=== PATIENT | male | born 2000 | race Caucasian/White ===

== ENCOUNTER 2021-12-20 20:38 | Emergency (ER) | payer BC ==
[2021-12-20] MEDS ORDERED: NS IV 1000 ML 1,000 ML IV STA (20:53)
[2021-12-20] MEDS ORDERED: ONDANSETRON 4 MG/2 ML (SDV) Z0FRAN IVP STA (20:53)
[2021-12-20 20:58] LABS: BASOPHILS % (AUTO) 0 % (0-10); EOSINOPHILS % (AUTO) 0 % (0-10); HEMATOCRIT 47 % (40-54); HEMOGLOBIN 16.5 g/dL (13.3-17.7); LYMPHOCYTES # (AUTO) 1.8 10^3/uL (1.0-4.0); LYMPHOCYTES % (AUTO) 17 % (12-44); MEAN CORPUSCULAR HEMOGLOBIN 31 pg (25-34); MEAN CORPUSCULAR HGB CONC 36 g/dL (32-36); MEAN CORPUSCULAR VOLUME 87 fL (80-99); MEAN PLATELET VOLUME 11.7 fL (9.0-12.2); MONOCYTES # (AUTO) 0.7 10^3/uL (0.0-1.0); MONOCYTES % (AUTO) 6 % (0-12); NEUTROPHILS # (AUTO) 7.8 10^3/uL (1.8-7.8); NEUTROPHILS % (AUTO) 76 % (42-75); PLATELET COUNT 168 10^3/uL (130-400); WHITE BLOOD COUNT 10.4 10^3/uL (4.3-11.0)
[2021-12-20 21:15] LABS: BILIRUBIN,URINE NEGATIVE (NEGATIVE); CLARITY,URINE CLEAR; COLOR,URINE YELLOW; GLUCOSE, URINE (UA) NEGATIVE (NEGATIVE); KETONES,URINE 2+ (NEGATIVE); LEUKOCYTE ESTERASE ,URINE NEGATIVE (NEGATIVE); NITRITE,URINE NEGATIVE (NEGATIVE); PH,URINE 7.5 (5-9); PROTEIN,URINE NEGATIVE (NEGATIVE)
[2021-12-20 21:16] LABS: BILIRUBIN,TOTAL 0.7 MG/DL (0.1-1.0); BUN/CREATININE RATIO 9; CALCIUM 10.1 MG/DL (8.5-10.1); CARBON DIOXIDE 20 MMOL/L (21-32); CHLORIDE 103 MMOL/L (98-107); CREATININE SERUM 0.96 MG/DL (0.60-1.30); GFR ESTIMATED 116; GLUCOSE 115 MG/DL (70-105); POTASSIUM 3.7 MMOL/L (3.6-5.0); SODIUM 137 MMOL/L (135-145)
[2021-12-20 21:17] LABS: ALANINE AMINOTRANSFERASE 15 U/L (0-55); ALBUMIN 4.9 GM/DL (3.2-4.5); ALKALINE PHOSPHATASE 50 U/L (40-136); LIPASE 16 U/L (8-78); TOTAL PROTEIN 7.8 GM/DL (6.4-8.2)
[2021-12-20 21:20] LABS: BACTERIA,URINE MODERATE /HPF
[2021-12-20 21:28] LABS: AMPHETAMINE SCREEN, URINE NEGATIVE (NEGATIVE); BARBITURATE SCREEN URINE NEGATIVE (NEGATIVE); BENZODIAZEPINES SCREEN URINE NEGATIVE (NEGATIVE); CANNABINOID SCREEN, URINE POSITIVE (NEGATIVE); COCAINE SCREEN URINE NEGATIVE (NEGATIVE); METHADONE STAT NEGATIVE (NEGATIVE); METHAMPHETAMINE SCREEN URINE S NEGATIVE (NEGATIVE); OPIATE SCREEN URINE NEGATIVE (NEGATIVE); OXYCODONE STAT NEGATIVE (NEGATIVE); PROPOXYPHENE STAT NEGATIVE (NEGATIVE); TRICYCLIC ANTIDEPRESSANTS SCRE NEGATIVE (NEGATIVE)
--- NOTE | 2021-12-20 21:45 | Diagnostic Imaging Report ---
PROCEDURE: CT head and CT cervical spine without contrast. TECHNIQUE: Multiple contiguous axial images were obtained through the brain and cervical spine without the use of intravenous contrast. Sagittal and coronal reformations through the cervical spine were then performed. Auto Exposure Controls were utilized during the CT exam to meet ALARA standards for radiation dose reduction. DATE: December 20, 2021. COMPARISON: None. INDICATION: 21-year-old male, headache. Neck pain. Tingling in the hands. FINDINGS: The ventricles and cerebral spinal fluid spaces are of normal size and configuration for the patient's age. There is no mass effect or midline shift. There is no acute intracranial hemorrhage. There is no abnormal extra-axial fluid collection. The visualized portions of the paranasal sinuses, mastoid air cells and middle ears are well aerated. There is no identified facet joint subluxation or dislocation. There is no asymmetric widening of the cervical disc spaces. The cervical disc heights are well preserved. CT is limited for assessment of disc pathology as well as additional non-bony causes of pathology in the spinal canal. There is no identified acute fracture of the cervical spine. The visualized portions of the lung apices are clear. IMPRESSION: 1. No identified acute intracranial abnormality. 2. No identified acute abnormality of the cervical spine. Dictated by: Dictated on workstation # [id number]
[2021-12-20] MEDS ORDERED: ONDA4TAB11 PO (22:10)
--- NOTE | 2021-12-20 22:10 | ED General ---
General Chief Complaint: Dizziness/Syncope Stated Complaint: DIZZINESS,NAUSEA Nursing Triage Note: Pt states he was dizzy at home while sitting at his desk. Pt states now he has tingling in both his hands Source of Information: Patient, Family History of Present Illness Date Seen by Provider: Dec 20, 2021 Time Seen by Provider: 20:42 Initial Comments 21-year-old male presenting with complaints of dizziness and nausea. He developed tingling into both hands after he had popped his neck and started having severe dizziness. He had also been worried recently because he had several family members with similar symptoms of dizziness and nausea and vomiting. He was concerned that maybe he had the same illness as the. He has had no fever, chills, diarrhea, cough, congestion, headache. At home they had tried a xzne-oib-[id number] medicine to try and help with his nausea. He was unable to take that because it was making him feel sick. He had also tried [id number] eardrops for dizziness and vertigo without improvement. Since he had continued symptoms and was continuing to worry about things with numbness in both hands that he came to the emergency department to be evaluated. He has had no head trauma or injury. He has no neck pain or headache currently. He does have a history of anxiety and stress. He had also slept all day and had no t eaten anything since 3 AM. Timing/Duration: 1-3 Hours Modifying Factors: worse with Eating Associated Systoms: No Chest Pain, No Cough, No Diaphoresis, No Fever/Chills, No Headaches, No Loss of Appetite, No Malaise; Nausea/Vomiting; No Rash, No Seizure, No Shortness of Air, No Syncope, No Weakness Allergies and Home Medications Allergies Coded Allergies: No Known Drug Allergies (Unverified , 12/20/21) Patient Home Medication List Home Medication List Reviewed: Yes Ondansetron (Ondansetron Odt) 4 Mg Tab.rapdis, 4 MG PO Q6H PRN for NAUSEA/VOMITING Prescribed by: CHRISTAL ESPARZA on 12/20/212209 Review of Systems Review of Systems Constitutional: see HPI EENTM: No ear discharge, No hearing loss, No ear pain, No blurred vision, No vision loss, No epistaxis, No nose congestion, No throat pain Respiratory: No cough, No short of breath, No stridor, No wheezing Cardiovascular: No chest pain, No edema Gastrointestinal: No diarrhea; nausea, vomiting Genitourinary: No dysuria Musculoskeletal: No neck pain Skin: No change in color, No rash Psychiatric/Neurological: Anxiety Past Ifedhvs-Gpmumi-Remnqn Hx Patient Social History Tobacco Use?: No Use of E-Cig and/or Vaping dev: No Substance use?: No Alcohol Use?: No Pt feels they are or have been: No Past Medical History Surgery/Hospitalization HX: Anxiety Physical Exam Vital Signs Vital Signs - First Documented 12/20/21 20:43 Temp 37.1 Pulse 74 Resp 16 B/P (MAP) 157/92 (113) Pulse Ox 99 O2 Delivery Room Air Capillary Refill : Less Than 3 Seconds Height, Weight, BMI Height: '" Weight: lbs. oz. kg; BMI Method: General Appearance: Anxious, Thin HEENT: PERRL/EOMI, Pharyngeal Erythema; No Photophobia, No Tonsillar Exudate, No Tonsillar Enlargement; Other (Increased cerumen bilaterally. Only able to visualize part of the TM bilaterally no drainage of fluid or hemotympanum appreciated) Neck: Full Range of Motion, Normal Inspection, Non Tender, Supple Respiratory: Chest Non Tender, Lungs Clear, Normal Breath Sounds, No Accessory Muscle Use, No Respiratory Distress Cardiovascular: Regular Rate, Rhythm, Normal Peripheral Pulses Gastrointestinal: Normal Bowel Sounds, No Pulsatile Mass, Non Tender, Soft Rectal: Deferred Back: No CVA Tenderness, No Vertebral Tenderness Extremity: Normal Capillary Refill, Normal Inspection, No Pedal Edema Neurologic/Psychiatric: Alert, Oriented x3, 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 II-XII Norm as Tested Skin: Normal Color, Warm/Dry Progress/Results/Core Measures Suspected Sepsis SIRS Temperature: Pulse: 74 Respiratory Rate: 16 Laboratory Tests 12/20/21 20:53: White Blood Count 10.4 Blood Pressure 157 /92 Mean: 113 Laboratory Tests 12/20/21 20:53: Creatinine 0.96, Platelet Count 168, Total Bilirubin 0.7 Results/Orders Lab Results Laboratory Tests Test 12/20/21 20:53 12/20/21 21:12 Range/Units White Blood Count 10.4 4.3-11.0 10^3/uL Red Blood Count 5.37 4.30-5.52 10^6/uL Hemoglobin 16.5 13.3-17.7 g/dL Hematocrit 47 40-54 % Mean Corpuscular Volume 87 80-99 fL Mean Corpuscular Hemoglobin 31 25-34 pg Mean Corpuscular Hemoglobin Concent 36 32-36 g/dL Red Cell Distribution Width 12.1 10.0-14.5 % Platelet Count 168 130-400 10^3/uL Mean Platelet Volume 11.7 9.0-12.2 fL Immature Granulocyte % (Auto) 0 % Neutrophils (%) (Auto) 76 H 42-75 % Lymphocytes (%) (Auto) 17 12-44 % Monocytes (%) (Auto) 6 0-12 % Eosinophils (%) (Auto) 0 0-10 % Basophils (%) (Auto) 0 0-10 % Neutrophils # (Auto) 7.8 1.8-7.8 10^3/uL Lymphocytes # (Auto) 1.8 1.0-4.0 10^3/uL Monocytes # (Auto) 0.7 0.0-1.0 10^3/uL Eosinophils # (Auto) 0.0 0.0-0.3 10^3/uL Basophils # (Auto) 0.0 0.0-0.1 10^3/uL Immature Granulocyte # (Auto) 0.0 0.0-0.1 10^3/uL Sodium Level 137 135-145 MMOL/L Potassium Level 3.7 3.6-5.0 MMOL/L Chloride Level 103 98-107 MMOL/L Carbon Dioxide Level 20 L 21-32 MMOL/L Anion Gap 14 5-14 MMOL/L Blood Urea Nitrogen 9 7-18 MG/DL Creatinine 0.96 0.60-1.30 MG/DL Estimat Glomerular Filtration Rate 116 BUN/Creatinine Ratio 9 Glucose Level 115 H 70-105 MG/DL Calcium Level 10.1 8.5-10.1 MG/DL Corrected Calcium 8.5-10.1 MG/DL Total Bilirubin 0.7 0.1-1.0 MG/DL Aspartate Amino Transf (AST/SGOT) 14 5-34 U/L Alanine Aminotransferase (ALT/SGPT) 15 0-55 U/L Alkaline Phosphatase 50 40-136 U/L Total Protein 7.8 6.4-8.2 GM/DL Albumin 4.9 H 3.2-4.5 GM/DL Lipase 16 8-78 U/L Serum Alcohol < 10 <10 MG/DL Urine Color YELLOW Urine Clarity CLEAR Urine pH 7.5 5-9 Urine Specific [place] 1.020 1.016-1.022 Urine Protein NEGATIVE NEGATIVE Urine Glucose (UA) NEGATIVE NEGATIVE Urine Ketones 2+ H NEGATIVE Urine Nitrite NEGATIVE NEGATIVE Urine Bilirubin NEGATIVE NEGATIVE Urine Urobilinogen 0.2 < = 1.0 MG/DL Urine Leukocyte Esterase NEGATIVE NEGATIVE Urine RBC (Auto) NEGATIVE NEGATIVE Urine RBC 5-10 H /HPF Urine WBC 2-5 /HPF Urine Squamous Epithelial Cells NONE /HPF Urine Crystals NONE /LPF Urine Bacteria MODERATE H /HPF Urine Casts NONE /LPF Urine Mucus LARGE H /LPF Urine Culture Indicated YES Urine Opiates Screen NEGATIVE NEGATIVE Urine Oxycodone Screen NEGATIVE NEGATIVE Urine Methadone Screen NEGATIVE NEGATIVE Urine Propoxyphene Screen NEGATIVE NEGATIVE Urine Barbiturates Screen NEGATIVE NEGATIVE Ur Tricyclic Antidepressants Screen NEGATIVE NEGATIVE Urine Phencyclidine Screen NEGATIVE NEGATIVE Urine Amphetamines Screen NEGATIVE NEGATIVE Urine Methamphetamines Screen NEGATIVE NEGATIVE Urine Benzodiazepines Screen NEGATIVE NEGATIVE Urine Cocaine Screen NEGATIVE NEGATIVE Urine Cannabinoids Screen POSITIVE H NEGATIVE My Orders Orders - CHRISTAL ESPARZA MD Comprehensive Metabolic Panel (12/20/21 20:53) Lipase (12/20/21 20:53) Ua Culture If Indicated (12/20/21 20:53) Ed Iv/Invasive Line Start (12/20/21 20:53) Cbc With Automated Diff (12/20/21 20:53) Ns Iv 1000 Ml (Sodium Chloride 0.9%) (12/20/21 20:53) Ondansetron Injection (Zofran Injectio (12/20/21 20:53) Ct Head/Cervical Spine Wo (12/20/21 20:53) Drug Screen Stat (Urine) (12/20/21 20:53) Alcohol (12/20/21 20:53) Urine Culture (12/20/21 21:12) Rx-Ondansetron Po (Rx-Zofran Po) (12/20/21 22:15) Vital Signs/I&O 12/20/21 12/20/21 20:43 22:17 Temp 37.1 Pulse 74 63 Resp 16 16 B/P (MAP) 157/92 (113) 141/79 Pulse Ox 99 100 O2 Delivery Room Air Room Air Capillary Refill : Less Than 3 Seconds Blood Pressure Mean: 113 Progress Note #1: Progress Note Obtain basic labs and urinalysis. Also urine drug screen and alcohol to look for other reasons that he might be dizzy and lightheaded as well as having numbness and tingling in his hands. Ordered a CT scan of his head and cervical spine since some of his symptoms were worsened after popping his neck. Will treat with normal saline 1 L IV fluid bolus for hydration, Zofran 4 mg IV for nausea. Differential diagnosis includes dehydration, gastroenteritis, vertigo, sinusitis, anxiety, electrolyte imbalance, UTI Progress Note #2: Progress Note Labs appear stable without acute significant abnormality. He does have elevated specific gravity of 1.020. He has some moderate bacteria in his urine. His urine also shows 2+ ketones. His CT scan came back showing no acute significant normality. Rechecked on the patient he reports feeling better and was tolerating oral intake. Reassured patient and advised that some of this may be anxiety. He may also have stomach virus causing some symptoms. Encouraged to use the dissolving Zofran tablets to help keep his stomach settled. Continue with liquid diet for 24 hours. If he tolerates this then he can advance to bland diet. Pulmonary advance back to regular diet as tolerated. Check back with his regular provider for continued concerns. His urine drug screen was positive for marijuana and he had no alcohol in his system. Diagnostic Imaging Diagonstic Imaging: CT Plain Films/CT/US/NM/MRI: c-spine, head Comments [facility], [place] NAME: [facility] REC#: [id number] PT STATUS: REG ER : 2000 PHYSICIAN: CHRISTAL ESPARZA MD ADMIT DATE: 12/20/21/ER FS Draft Date of Exam:12/20/21 CT HEAD/CERVICAL SPINE WO PROCEDURE: CT head and CT cervical spine without contrast. TECHNIQUE: Multiple contiguous axial images were obtained through the brain and cervical spine without the use of intravenous contrast. Sagittal and coronal reformations through the cervical spine were then performed. Auto Exposure Controls were utilized during the CT exam to meet ALARA standards for radiation dose reduction. DATE: December 20, 2021. COMPARISON: None. INDICATION: 21-year-old male, headache. Neck pain. Tingling in the hands. FINDINGS: The ventricles and cerebral spinal fluid spaces are of normal size and configuration for the patient's age. There is no mass effect or midline shift. There is no acute intracranial hemorrhage. There is no abnormal extra-axial fluid collection. The visualized portions of the paranasal sinuses, mastoid air cells and middle ears are well aerated. There is no identified facet joint subluxation or dislocation. There is no asymmetric widening of the cervical disc spaces. The cervical disc heights are well preserved. CT is limited for assessment of disc pathology as well as additional non-bony causes of pathology in the spinal canal. There is no identified acute fracture of the cervical spine. The visualized portions of the lung apices are clear. IMPRESSION: 1. No identified acute intracranial abnormality. 2. No identified acute abnormality of the cervical spine. Dictated on workstation # [id number] Dict: 12/20/212139 Trans: 12/20/212143 PJ [id number] Interpreted by: REGINA JOYCE MD Electronically signed by: Reviewed: Reviewed by Me Departure Impression Primary Impression: Dehydration Additional Impressions: Dizziness Excessive cerumen in both ear canals Anxiety about health Disposition: HOME, SELF-CARE Condition: Improved Departure-Patient Inst. Decision time for Depature: 22:07 Referrals: NO,LOCAL PHYSICIAN (PCP) Primary Care Physician LEMUEL RIVERA (Family) Primary Care Physician Patient Instructions: Dehydration, Adult ED, Dizziness, Adult ED, Ear Wax Impaction ED, Anxiety, Adult ED Add. Discharge Instructions: Stay well-hydrated and drink plenty of fluids. Follow a liquid diet for the next 24 hours. Drink plenty of water and electrolyte drinks. If you are tolerating the fluids over the next 24 hours she could advance to more bland diet. This could include things like a BRAT diet, B for Bananas, R for Rice, A for Applesauce, T for [place]. If you are tolerating this then advance to more regular diet. Use the dissolving nausea tablets to help with keeping your stomach settled. All discharge instructions reviewed with patient and/or family. Voiced understanding. Scripts Ondansetron (Ondansetron Odt) 4 Mg Tab.rapdis 4 MG PO Q6H PRN for NAUSEA/VOMITING for 5 Days, #20 TAB 0 Refills Prov: CHRISTAL ESPARZA MD 12/20/21 CHRISTAL ESPARZA MD Dec 20, 2021 22:10
[2021-12-20] MEDS ORDERED: RX-ONDANSETRON 4 MG ODT (ZOFRAN) PPK #4 PO PRN (22:15)
[2021-12-20 22:17] VITALS: BP 141/79
== END 2021-12-20 22:17 | disposition home or self-care (01) ==
LOC: ER FS 20:41
DX: E86.0 Dehydration (principal); F41.9 Anxiety disorder, unspecified; H61.23 Impacted cerumen, bilateral; R11.2 Nausea with vomiting, unspecified
CPT/HCPCS: 36415; 70450; 72125; 80053; 80306; 80320; 81000; 83690; 85025; 87088

== ENCOUNTER 2021-12-24 19:07 | Emergency (ER) | payer BC ==
[~2021-12-24] VITALS: Ht 187.9 cm; Wt 60.8 kg
[~2021-12-24 19:07] MED LIST: ONDA4TAB11 PO
[2021-12-24] MEDS ORDERED: PANTOPRAZOLE 40 MG (PROTONIX) VIAL IV STA (19:20)
[2021-12-24] MEDS ORDERED: KETOROLAC 30 MG/ML VIAL IVP STA (19:20)
[2021-12-24] MEDS ORDERED: NS IV 1000 ML 1,000 ML IV STA (19:20)
[2021-12-24] MEDS ORDERED: ONDANSETRON 4 MG/2 ML (SDV) Z0FRAN IVP STA (19:20)
[2021-12-24 19:27] LABS: BASOPHILS % (AUTO) 0 % (0-10); EOSINOPHILS % (AUTO) 0 % (0-10); HEMATOCRIT 48 % (40-54); HEMOGLOBIN 16.8 g/dL (13.3-17.7); LYMPHOCYTES # (AUTO) 1.7 10^3/uL (1.0-4.0); LYMPHOCYTES % (AUTO) 19 % (12-44); MEAN CORPUSCULAR HEMOGLOBIN 30 pg (25-34); MEAN CORPUSCULAR HGB CONC 35 g/dL (32-36); MEAN CORPUSCULAR VOLUME 87 fL (80-99); MEAN PLATELET VOLUME 12.1 fL (9.0-12.2); MONOCYTES # (AUTO) 0.8 10^3/uL (0.0-1.0); MONOCYTES % (AUTO) 8 % (0-12); NEUTROPHILS # (AUTO) 6.6 10^3/uL (1.8-7.8); NEUTROPHILS % (AUTO) 72 % (42-75); PLATELET COUNT 173 10^3/uL (130-400); WHITE BLOOD COUNT 9.2 10^3/uL (4.3-11.0)
--- NOTE | 2021-12-24 19:29 | ED GI ---
General Chief Complaint: Abdominal/GI Problems Stated Complaint: R UPPER ABD PAIN Source of Information: Patient, Family History of Present Illness Date Seen by Provider: Dec 24, 2021 Time Seen by Provider: 19:11 Initial Comments 21-year-old male presenting with complaints of epigastric and right upper quadrant abdominal pain. He has had nausea, vomiting, diarrhea. He states that he has been struggling to even keep liquids down. He had been seen on Wednesday for having dizziness and headache. All of his testing at that time had looked okay. He was doing better after some fluids and Zofran here in the emergency department. He states that he has had worsening vomiting and diarrhea in the last 48 hours. He has not had a fever or chills. He appears very anxious. He complains of sharp and cramping pain that is worse if he tries to eat or drink. He had gone to the [facility] in the ordered a test of his gallbladder but it will not be performed until Wednesday, January 02. He was having pain so he came here to the emergency department to be evaluated tonight. Timing/Duration: 4-5 Days Severity/Quality: Severe, Cramping, Sharp Location: RUQ, Epigastric Radiation: No Radiation Activities at Onset: None Modifying Factors: Worsens With Eating Associated Symptoms: No Back Pain, No Chest Pain, No Diaphoresis, No Fever/Chills, No Fatigue, No Headache, No Heartburn; Nausea/Vomiting; No Rash, No Shortness of Air, No Swelling/Mass in Abdomen, No Syncope, No Weakness Allergies and Home Medications Allergies Coded Allergies: No Known Drug Allergies (Unverified , 12/20/21) Patient Home Medication List Home Medication List Reviewed: Yes Ciprofloxacin HCl (Ciprofloxacin HCl) 500 Mg Tablet, 500 MG PO BID Prescribed by: CHRISTAL ESPARZA on 12/24/212018 Dicyclomine HCl (Dicyclomine HCl) 10 Mg Capsule, 10 MG PO Q6H PRN for abdominal cramping/pain Prescribed by: CHRISTAL ESPARZA on 12/24/212036 Esomeprazole Magnesium (Nexium) 20 Mg Capsule.dr 20 MG PO DAILY Prescribed by: CHRISTAL ESPARZA on 12/24/212018 Metoclopramide HCl (Metoclopramide HCl) 10 Mg Tablet, 10 MG PO Q6H PRN for NAUSEA/VOMITING Prescribed by: CHRISTAL ESPARZA on 12/24/212018 Ondansetron (Ondansetron Odt) 4 Mg Tab.rapdis, 4 MG PO Q6H PRN for NAUSEA/VOMITING Prescribed by: CHRISTAL ESPARZA on 12/20/21 2210 Review of Systems Review of Systems Constitutional: No chills, No fever EENTM: No Symptoms Reported Respiratory: No Symptoms Reported Cardiovascular: No Symptoms Reported Gastrointestinal: See HPI Genitourinary: Denies Burning, Denies Flank Pain Musculoskeletal: no symptoms reported Skin: No rash Psychiatric/Neurological: Anxiety Past Orpbeiq-Sifbmo-Auoolc Hx Past Medical History Surgery/Hospitalization HX: Anxiety Physical Exam Vital Signs Vital Signs - First Documented 12/24/21 19:10 Temp 37.5 Pulse 73 Resp 18 B/P (MAP) 166/96 (119) Pulse Ox 100 O2 Delivery Room Air Capillary Refill : Height/Weight/BMI Height: '" Weight: lbs. oz. kg; BMI Method: General Appearance: thin, other (Anxious appearing) HEENT: PERRL/EOMI, pharynx normal Neck: non-tender, full range of motion, supple Respiratory: chest non-tender, lungs clear, normal breath sounds, no respiratory distress, no accessory muscle use Cardiovascular: normal peripheral pulses, regular rate, rhythm Gastrointestinal: normal bowel sounds, soft, no pulsatile mass; No distended; guarding; No rebound; tenderness (Epigastric and right upper quadrant) Rectal: deferred Extremities: normal range of motion, non-tender, normal capillary refill Neurologic/Psychiatric: alert, oriented x 3, other (Anxious) Skin: normal color, warm/dry Images 1 - Complains of pain primarily in the right upper quadrant and epigastric area. There is no rebound tenderness. He does have diffuse guarding Progress/Results/Core Measures Results/Orders Lab Results Laboratory Tests Test 12/24/21 19:15 Range/Units White Blood Count 9.2 4.3-11.0 10^3/uL Red Blood Count 5.55 H 4.30-5.52 10^6/uL Hemoglobin 16.8 13.3-17.7 g/dL Hematocrit 48 40-54 % Mean Corpuscular Volume 87 80-99 fL Mean Corpuscular Hemoglobin 30 25-34 pg Mean Corpuscular Hemoglobin Concent 35 32-36 g/dL Red Cell Distribution Width 12.0 10.0-14.5 % Platelet Count 173 130-400 10^3/uL Mean Platelet Volume 12.1 9.0-12.2 fL Immature Granulocyte % (Auto) 0 % Neutrophils (%) (Auto) 72 42-75 % Lymphocytes (%) (Auto) 19 12-44 % Monocytes (%) (Auto) 8 0-12 % Eosinophils (%) (Auto) 0 0-10 % Basophils (%) (Auto) 0 0-10 % Neutrophils # (Auto) 6.6 1.8-7.8 10^3/uL Lymphocytes # (Auto) 1.7 1.0-4.0 10^3/uL Monocytes # (Auto) 0.8 0.0-1.0 10^3/uL Eosinophils # (Auto) 0.0 0.0-0.3 10^3/uL Basophils # (Auto) 0.0 0.0-0.1 10^3/uL Immature Granulocyte # (Auto) 0.0 0.0-0.1 10^3/uL Sodium Level 135 135-145 MMOL/L Potassium Level 3.9 3.6-5.0 MMOL/L Chloride Level 101 98-107 MMOL/L Carbon Dioxide Level 21 21-32 MMOL/L Anion Gap 13 5-14 MMOL/L Blood Urea Nitrogen 11 7-18 MG/DL Creatinine 1.06 0.60-1.30 MG/DL Estimat Glomerular Filtration Rate 103 BUN/Creatinine Ratio 10 Glucose Level 97 70-105 MG/DL Calcium Level 10.5 H 8.5-10.1 MG/DL Corrected Calcium 8.5-10.1 MG/DL Total Bilirubin 1.2 H 0.1-1.0 MG/DL Aspartate Amino Transf (AST/SGOT) 12 5-34 U/L Alanine Aminotransferase (ALT/SGPT) 14 0-55 U/L Alkaline Phosphatase 54 40-136 U/L Total Protein 8.2 6.4-8.2 GM/DL Albumin 5.2 H 3.2-4.5 GM/DL Lipase 17 8-78 U/L My Orders Orders - CHRISTAL ESPARZA MD Comprehensive Metabolic Panel (12/24/21 19:20) Lipase (12/24/21 19:20) Ed Iv/Invasive Line Start (12/24/21 19:20) Cbc With Automated Diff (12/24/21 19:20) Ct Abdomen/Pelvis W (12/24/21 19:20) Ns Iv 1000 Ml (Sodium Chloride 0.9%) (12/24/21 19:20) Pantoprazole Injection (Protonix Injecti (12/24/21 19:20) Ondansetron Injection (Zofran Injectio (12/24/21 19:20) Ketorolac Injection (Toradol Injection) (12/24/21 19:20) Iohexol Injection (Omnipaque 350 Mg/Ml 1 (12/24/21 20:00) Received Contrast (Hold Metformin- Contr (12/24/21 20:00) Sodium Chloride Flush (Catheter Flush Sy (12/24/21 20:00) Ns (Ivpb) (Sodium Chloride 0.9% Ivpb Bag (12/24/21 20:00) Ciprofloxacin Tablet (Cipro Tablet) (12/24/21 20:20) Rx-Dicyclomine Capsule (Rx-Bentyl Capsul (12/24/21 20:35) Medications Given in ED Current Medications Medications Dose Ordered Sig/Monae Route Start Time Stop Time Status Last Admin Dose Admin Iohexol 100 ml ONCE ONCE IV 12/24/21 20:00 12/24/21 20:01 UNV 12/24/21 19:48 100 ML Sodium Chloride 10 ml NEEDED PRN IV 12/24/21 20:00 UNV 12/24/21 19:48 10 ML Sodium Chloride 100 ml ONCE ONCE IV 12/24/21 20:00 12/24/21 20:01 UNV 12/24/21 19:48 80 ML Vital Signs/I&O 12/24/21 19:10 Temp 37.5 Pulse 73 Resp 18 B/P (MAP) 166/96 (119) Pulse Ox 100 O2 Delivery Room Air Progress Progress Note #1: Progress Note Advised patient and family that his labs from a liver standpoint had looked fine on Wednesday. We will repeat blood work tonight and see if there has been any change. Can order a CT scan to evaluate for signs of acute obstruction, pericholecystic fluid, signs of obstruction of the liver. If everything looks okay and he is not having any acute changes as well as not having any changes on his blood work then could try medication for gastritis and reflux as well as a different nausea medication. Have him follow-up with clinic and surgery as he may need a EGD. Can order an outpatient ultrasound of the gallbladder. Was for his pain we will try a dose of Protonix 40 mg IV x1, Toradol 30 mg IV x1, normal saline 1 L IV for hydration, Zofran 4 mg IV for nausea and vomiting. Progress Note #2: Progress Note Labs appear similar to this weekend. He has a white blood cell count of 9.2 thousand. He has no significant elevation of his LFTs. His total bilirubin was 0.7 and now is 1.2. He has findings on the CT scan of diffuse bowel wall thickening and inflammation consistent with colitis. This could be either infectious or inflammatory. There is no sign of definite gallbladder disease or hepatic obstruction. Will try treating for colitis and have him check back with Dr. Tello for colonoscopy. Use proton pump inhibitor for possible gastritis, Reglan for nausea, Cipro for 5 days for possible infectious source of the colitis. Try Bentyl or dicyclomine for abdominal cramping and pain. Encouraged to follow-up with Dr. Tello as he may need a colonoscopy or scope. Diagnostic Imaging Diagonstic Imaging: CT Plain Films/CT/US/NM/MRI: abdomen, pelvis Comments NAME: MARINA MCCLAIN [facility] REC#: [id number] PT STATUS: REG ER : 2000 PHYSICIAN: CHRISTAL ESPARZA MD ADMIT DATE: 12/24/21/ER FS Draft Date of Exam:12/24/21 CT ABDOMEN/PELVIS W PROCEDURE: CT abdomen and pelvis with contrast. TECHNIQUE: Multiple contiguous axial images were obtained through the abdomen and pelvis after administration of intravenous contrast. Auto Exposure Controls were utilized during the CT exam to meet ALARA standards for radiation dose reduction. All CT scans use one or more of the following dose optimizing techniques: automated exposure control, MA and/or KvP adjustment based on patient size and exam type or iterative reconstruction. DATE: December 24, 2021. COMPARISON: None. INDICATION: 21-year-old male, right upper quadrant and epigastric pain. Nausea and vomiting. Diarrhea. FINDINGS: The visualized portions of the lung bases are clear. The heart is not enlarged. There is no pericardial effusion. The liver is unremarkable in size and contour. There is no identified liver lesion. The main, right, and left portal veins are patent. The gallbladder is unremarkable. There is no identified intrahepatic or extrahepatic bile duct dilation. The main pancreatic duct is not abnormally dilated. Unremarkable appearance of the pancreatic parenchyma. The spleen is not enlarged. There is an accessory splenule on axial image 74. The adrenal glands are unremarkable. Unremarkable appearance of the renal parenchyma. The urinary collecting systems are not distended. There is no identified renal or ureteral stone. There is mild diffuse urinary bladder wall thickening which may relate to cystitis, chronic outlet obstruction and/or under distention. There is long segment wall thickening of the vast majority of the colon. There is no distention of the intestinal tract. There is no free intraperitoneal air. There is no drainable fluid collection. There is no sizable volume free pelvic fluid. There is no identified abnormally enlarged lymph node in the abdomen or pelvis which meets CT size criteria for adenopathy. There is no identified acute bony abnormality. IMPRESSION: CT abdomen and pelvis: 1. Long segment wall thickening of the vast majority of the colon likely relating to a nonspecific colitis. Infectious and inflammatory etiologies are favored. Dictated on workstation # [id number] Dict: 12/24/211952 Trans: 12/24/211999 E [id number] Interpreted by: REGINA JOYCE MD Electronically signed by: Reviewed: Reviewed by Me Departure Impression Primary Impression: Right upper quadrant abdominal pain Additional Impressions: Nausea vomiting and diarrhea Colitis Disposition: 01 HOME, SELF-CARE Condition: Stable Departure-Patient Inst. Decision time for Depature: 20:36 Referrals: APOLONIA TELLO REBECCA A ARNP-C (PCP) Primary Care Physician Patient Instructions: Abdominal Pain, Adult ED, Colitis (DC), Diarrhea, Adult ED, Full Liquid Diet, Nausea and Vomiting, Adult ED Add. Discharge Instructions: Follow a full liquid diet until your symptoms have resolved. Take antibiotic to treat for possible infectious source of the inflammation of the colon. Follow up with Dr. Tello as you may need Colonoscopy to further evaluate your colon and the colitis, especially if it is not improving. All discharge instructions reviewed with patient and/or family. Voiced understanding. Scripts Dicyclomine HCl (Dicyclomine HCl) 10 Mg Capsule 10 MG PO Q6H PRN for abdominal cramping/pain for 7 Days, #28 CAP 0 Refills Prov: ENYART,CHRISTAL E MD 12/24/21 Esomeprazole Magnesium (Nexium) 20 Mg Capsule.dr 20 MG PO DAILY for gastritis for 30 Days, #30 CAP 0 Refills Prov: CHRISTAL ESPARZA MD 12/24/21 Metoclopramide HCl (Metoclopramide HCl) 10 Mg Tablet 10 MG PO Q6H PRN for NAUSEA/VOMITING for 5 Days, #20 TAB 0 Refills Prov: CHRISTAL ESPARZA MD 12/24/21 Ciprofloxacin HCl (Ciprofloxacin HCl) 500 Mg Tablet 500 MG PO BID for colitis for 5 Days, #10 TAB 0 Refills Prov: CHRISTAL ESPARZA MD 12/24/21 CHRISTAL ESPARZA MD Dec 24, 2021 19:28
[2021-12-24 19:43] LABS: ALANINE AMINOTRANSFERASE 14 U/L (0-55); ALKALINE PHOSPHATASE 54 U/L (40-136); BILIRUBIN,TOTAL 1.2 MG/DL (0.1-1.0); BUN/CREATININE RATIO 10; CALCIUM 10.5 MG/DL (8.5-10.1); CARBON DIOXIDE 21 MMOL/L (21-32); CHLORIDE 101 MMOL/L (98-107); CREATININE SERUM 1.06 MG/DL (0.60-1.30); GFR ESTIMATED 103; GLUCOSE 97 MG/DL (70-105); POTASSIUM 3.9 MMOL/L (3.6-5.0); SODIUM 135 MMOL/L (135-145)
[2021-12-24 19:44] LABS: ALBUMIN 5.2 GM/DL (3.2-4.5); LIPASE 17 U/L (8-78); TOTAL PROTEIN 8.2 GM/DL (6.4-8.2)
[2021-12-24] MEDS ORDERED: NS 100 ML (IVPB) BAG IV ONE (20:00)
[2021-12-24] MEDS ORDERED: HOLD METFORMIN - RECEIVED CONTRAST 20 ML VIAL IV SCH (20:00)
[2021-12-24] MEDS ORDERED: IOHEXOL 350 MG/ML 100 ML (OMNIPAQUE 350) VIAL IV ONE (20:00)
[2021-12-24] MEDS ORDERED: CATHETER FLUSH 10 ML SYR IV PRN (20:00)
--- NOTE | 2021-12-24 20:02 | Diagnostic Imaging Report ---
PROCEDURE: CT abdomen and pelvis with contrast. TECHNIQUE: Multiple contiguous axial images were obtained through the abdomen and pelvis after administration of intravenous contrast. Auto Exposure Controls were utilized during the CT exam to meet ALARA standards for radiation dose reduction. All CT scans use one or more of the following dose optimizing techniques: automated exposure control, MA and/or KvP adjustment based on patient size and exam type or iterative reconstruction. DATE: December 24, 2021. COMPARISON: None. INDICATION: 21-year-old male, right upper quadrant and epigastric pain. Nausea and vomiting. Diarrhea. FINDINGS: The visualized portions of the lung bases are clear. The heart is not enlarged. There is no pericardial effusion. The liver is unremarkable in size and contour. There is no identified liver lesion. The main, right, and left portal veins are patent. The gallbladder is unremarkable. There is no identified intrahepatic or extrahepatic bile duct dilation. The main pancreatic duct is not abnormally dilated. Unremarkable appearance of the pancreatic parenchyma. The spleen is not enlarged. There is an accessory splenule on axial image 74. The adrenal glands are unremarkable. Unremarkable appearance of the renal parenchyma. The urinary collecting systems are not distended. There is no identified renal or ureteral stone. There is mild diffuse urinary bladder wall thickening which may relate to cystitis, chronic outlet obstruction and/or under distention. There is long segment wall thickening of the vast majority of the colon. There is no distention of the intestinal tract. There is no free intraperitoneal air. There is no drainable fluid collection. There is no sizable volume free pelvic fluid. There is no identified abnormally enlarged lymph node in the abdomen or pelvis which meets CT size criteria for adenopathy. There is no identified acute bony abnormality. IMPRESSION: CT abdomen and pelvis: 1. Long segment wall thickening of the vast majority of the colon likely relating to a nonspecific colitis. Infectious and inflammatory etiologies are favored. Dictated by: Dictated on workstation # [id number]
[2021-12-24] MEDS ORDERED: CIPR500T5 PO (20:19)
[2021-12-24] MEDS ORDERED: ESOM20CA PO (20:19)
[2021-12-24] MEDS ORDERED: MTC10T PO (20:19)
[2021-12-24] MEDS ORDERED: CIPROFLOXACIN 500 MG (CIPRO) TABLET PO STA (20:20)
[2021-12-24] MEDS ORDERED: RX-DICYCLOMINE 10 MG (BENTYL) CAP PPK#4 PO STA (20:35)
[2021-12-24] MEDS ORDERED: DICY10CA12 PO (20:37)
[2021-12-24 20:42] VITALS: BP 130/89
== END 2021-12-24 20:42 | disposition home or self-care (01) ==
LOC: EDUNIT# 19:07 → ER FS 19:08
DX: K52.9 Noninfective gastroenteritis and colitis, unspecified (principal); R11.2 Nausea with vomiting, unspecified
CPT/HCPCS: 36415; 74177; 80053; 83690; 85025; Q9967

== ENCOUNTER → 2022-01-10 | Outpatient (CLI) | payer BC ==
[~2022-01-10] MED LIST changes: +CIPR500T5 PO; +DICY10CA12 PO; +ESOM20CA PO; +MTC10T PO
== END ==
LOC: LAB FS 11:54
PROVIDERS: ATTEND Nurse Practitioner Community Health
DX: R00.2 Palpitations (principal)
CPT/HCPCS: 36415; 84443

== ENCOUNTER 2022-07-09 09:27 | Emergency (ER) | payer SELFPAY ==
[~2022-07-09] VITALS: Ht 185 cm; Wt 60.8 kg
[2022-07-09] MEDS ORDERED: LIDOCAINE 1% INJ 20 ML VIAL INJ ONE (10:00)
--- NOTE | 2022-07-09 10:00 | ED Integumentary General ---
General Chief Complaint: Skin/Wound Problems Stated Complaint: RT THUMB SWELLING Nursing Triage Note: PT REPORTS RIGHT THUMB PAIN AND SWELLING FOR THE PAST 2 DAYS. Source: patient Exam Limitations: no limitations History of Present Illness Date Seen by Provider: Jul 09, 2022 Time Seen by Provider: 09:28 Initial Comments 21-year-old male with no pertinent past medical history coming in due to right thumb swelling and pain for the past 2 days. Swelling has been increasing over time. The pain is moderate, throbbing, worse with touching it, better with ibuprofen. Denies any fever with it. Denies any injury or stabbing to it. Otherwise denying any other acute complaints Allergies and Home Medications Allergies Coded Allergies: No Known Drug Allergies (Unverified , 12/20/21) Patient Home Medication List Home Medication List Reviewed: Yes Ciprofloxacin HCl (Ciprofloxacin HCl) 500 Mg Tablet, 500 MG PO BID Prescribed by: CHRISTAL ESPARZA on 12/24/212018 Dicyclomine HCl (Dicyclomine HCl) 10 Mg Capsule, 10 MG PO Q6H PRN for abdominal cramping/pain Prescribed by: CHRISTAL ESPARZA on 12/24/212036 Esomeprazole Magnesium (Nexium) 20 Mg Capsule.dr, 20 MG PO DAILY Prescribed by: CHRISTAL ESPARZA on 12/24/212018 Metoclopramide HCl (Metoclopramide HCl) 10 Mg Tablet, 10 MG PO Q6H PRN for NAUSEA/VOMITING Prescribed by: CHRISTAL ESPARZA on 12/24/212018 Ondansetron (Ondansetron Odt) 4 Mg Tab.rapdis, 4 MG PO Q6H PRN for NAUSEA/VOMITING Prescribed by: CHRISTAL ESPARZA on 12/20/21 221 Sulfamethoxazole/Trimethoprim (Bactrim Ds Tablet) 1 Each Tablet, 1 EACH PO BID Prescribed by: RONALD BAKER on 07/09/22 1008 Review of Systems Review of Systems Constitutional: No fever EENTM: no symptoms reported Respiratory: no symptoms reported Cardiovascular: no symptoms reported Gastrointestinal: no symptoms reported Genitourinary: no symptoms reported Musculoskeletal: no symptoms reported Skin: see HPI Psychiatric/Neurological: No Symptoms Reported Endocrine: No Symptoms Reported Hematologic/Lymphatic: No Symptoms Reported All Other Systems Reviewed Negative Unless Noted: Yes Past Iejkxww-Yyzqoa-Badnfm Hx Patient Social History Tobacco Use?: No Use of E-Cig and/or Vaping dev: No Substance use?: No Alcohol Use?: No Pt feels they are or have been: No Immunizations Up To Date First/Initial COVID19 Vaccinat: denies Second COVID19 Vaccination Jeremy: denies Third COVID19 Vaccination Date: denies Past Medical History Surgery/Hospitalization HX: Anxiety Surgeries: No Physical Exam Vital Signs Vital Signs - First Documented 07/09/22 09:32 Temp 36.8 Pulse 107 Resp 16 B/P (MAP) 162/98 (119) Pulse Ox 97 O2 Delivery Room Air Capillary Refill : Less Than 3 Seconds General Appearance: WD/WN, no apparent distress HEENT: PERRL/EOMI, normal ENT inspection, pharynx normal Neck: non-tender, full range of motion, supple, normal inspection Cardiovascular: regular rate, rhythm, no edema, no murmur Respiratory: chest non-tender, lungs clear, normal breath sounds, no respir atory distress, no accessory muscle use Gastrointestinal: normal bowel sounds, non tender, soft; No guarding, No rebound Back: normal inspection Extremities: normal range of motion, non-tender, normal inspection, no pedal edema, no calf tenderness Neurologic/Psychiatric: no motor/sensory deficits, alert, normal mood/affect Skin: normal color, warm/dry, other (Erythema and mild amount of fluctuance to the right thumb, normal capillary refill) Lymphatic: no adenopathy Procedures/Interventions I&D : Site: left thumb Blade Size: 11 I & D Procedure: betadine prep Progress Digital block was performed with 1% lidocaine after the area was cleaned. 3 cc of lidocaine were utilized with full anesthesia achieved. Afterwards a single stab incision with an 11 blade to the radial side of the pulp of the thumb with scant amount of purulent drainage Progress/Results/Core Measures Results/Orders My Orders Orders - RONALD BAKER MD Lidocaine 1% Inj 20 Ml (Xylocaine 1% Inj (07/09/22 10:00) Wound Culture (07/09/22 10:09) Medications Given in ED Current Medications Medications Dose Ordered Sig/Monae Route Start Time Stop Time Status Last Admin Dose Admin Lidocaine HCl 20 ml ONCE ONCE INJ 07/09/22 10:00 07/09/22 10:02 DC 07/09/22 10:05 20 ML Vital Signs/I&O 07/09/22 09:32 Temp 36.8 Pulse 107 Resp 16 B/P (MAP) 162/98 (119) Pulse Ox 97 O2 Delivery Room Air Blood Pressure Mean: 119 Progress Progress Note : Progress Note 21-year-old male with above history coming in due to concerns for infection in his right thumb. ABCs were intact and vitals were stable on presentation. Physical exam consistent with a felon. Lthls-mm-albt ultrasound utilized by me showing a small pocket of drainable fluid in his thumb. The area was cleaned, anesthetized, and drained with a single stab incision. We will put him on antibiotics as there does appear to be some overlying cellulitis. Follow-up with his PCP as an outpatient Departure Impression Primary Impression: Felon of finger of right hand Disposition: 01 HOME, SELF-CARE Condition: Stable Departure-Patient Inst. Decision time for Depature: 10:30 Referrals: LEMUEL RIVERA (PCP) Primary Care Physician [facility] (Family) Primary Care Physician Patient Instructions: Abscess Incision and Drainage (DC) Add. Discharge Instructions: There was an infection in your thumb which now the opening will allow it to d rain. Keep the area clean until it heals. Do not submerge it in water at all, but you can let water run over it briefly. You will be on antibiotics for the next week. Take ibuprofen as needed for pain. If after couple days of antibiotics it starts to look worse, I want you to be seen by another doctor. Scripts Sulfamethoxazole/Trimethoprim (Bactrim Ds Tablet) 1 Each Tablet 1 EACH PO BID for 7 Days, #14 TAB Prov: RONALD BAKER MD 07/09/22 Work/School Note: Work Release Form Date Seen in the Emergency Department: Jul 09, 2022 Return to Work: Jul 10, 2022 Restrictions: No Restrictions RONALD BAKER MD Jul 09, 2022 10:00
[2022-07-09] MEDS ORDERED: SULF1TAB38 PO (10:08)
[2022-07-09 10:20] VITALS: BP 162/98
== END 2022-07-09 10:21 | disposition home or self-care (01) ==
LOC: EDUNIT# 09:27 → ER FS 09:28
DX: L03.011 Cellulitis of right finger (principal); Z28.310 Unvaccinated for COVID-19
CPT/HCPCS: 87070; 87077; 87186; 87205; 99282